=== PATIENT | female | born 1965 | race Caucasian/White ===

== ENCOUNTER 2021-09-07 06:00 | Day surgery (SDC) | payer OTHER ==
[~2021-09-07 06:00] MED LIST: BACLOFEN10 MG PO; COZAAR25 MG PO; IMITREX100 MG PO; ULTRAM50 MG PO
== END 2021-09-07 17:10 | disposition home or self-care (01) ==
LOC: CIR.AMB 06:00
PROVIDERS: ATTEND Orthopaedic Surgery
DX: S82.851A Displaced trimalleolar fracture of right lower leg, initial encounter for closed fracture (principal); S92.151A Displaced avulsion fracture (chip fracture) of right talus, initial encounter for closed fracture; S93.431A Sprain of tibiofibular ligament of right ankle, initial encounter

== ENCOUNTER 2021-09-23 16:16 | Outpatient (CLI) | payer OTHER | END 2021-09-23 16:21 | disposition home or self-care (01) | LOC: RAD 16:16 | PROVIDERS: ATTEND Orthopaedic Surgery | DX: S82.851D Displaced trimalleolar fracture of right lower leg, subsequent encounter for closed fracture with routine healing (principal) ==

== ENCOUNTER 2021-10-22 14:32 | Outpatient (CLI) | payer OTHER | END 2021-10-22 14:39 | disposition home or self-care (01) | LOC: RAD 14:32 | PROVIDERS: ATTEND Orthopaedic Surgery | DX: S82.851D Displaced trimalleolar fracture of right lower leg, subsequent encounter for closed fracture with routine healing (principal) ==

== ENCOUNTER 2021-10-28 14:57 | Outpatient (CLI) | payer OTHER | END 2021-10-28 15:04 | disposition home or self-care (01) | LOC: RAD 14:57 | PROVIDERS: ATTEND Orthopaedic Surgery | DX: S82.851D Displaced trimalleolar fracture of right lower leg, subsequent encounter for closed fracture with routine healing (principal); M79.604 Pain in right leg ==